=== PATIENT | male | born 1980 | race Caucasian/White ===

== ENCOUNTER 2017-03-02 18:52 | Emergency (ER) | payer OTHER ==
[~2017-03-02] VITALS: Ht 157.5 cm; Wt 74.8 kg
[2017-03-02 19:00] VITALS: BP 146/78
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
[2017-03-02 19:20] VITALS: BP 146/78
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
== END 2017-03-02 19:20 ==
LOC: MED 18:52
DX: S20.452A Superficial foreign body of left back wall of thorax, initial encounter (principal); S00.81XA Abrasion of other part of head, initial encounter; X58.XXXA Exposure to other specified factors, initial encounter; Y93.89 Activity, other specified; Y92.89 Other specified places as the place of occurrence of the external cause; Y99.8 Other external cause status
CPT/HCPCS: 99284

== ENCOUNTER 2017-03-03 10:31 | Emergency (ER) | payer OTHER ==
[~2017-03-03] VITALS: Ht 175.3 cm; Wt 88.5 kg
[2017-03-03 10:39] VITALS: BP 159/99
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
--- NOTE | 2017-03-03 10:53 | NUR ---
PA AT BEDSIDE
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
--- NOTE | 2017-03-03 11:10 | NUR ---
Genevieve vanessa in [facility] - 03/03/17 at 1110 by MED LILIAM student at [facility].
--- NOTE | 2017-03-03 11:10 | NUR ---
Pt escorted to restroom by Tasha GASPAR
--- NOTE | 2017-03-03 11:36 | NUR ---
Patient c/o dizziness. Blood accu-check checked. 93.
--- NOTE | 2017-03-03 12:00 | NUR ---
AMB. TO [place] WITH [facility]. DENIES DIZZINESS/STEADY GAIT
[2017-03-03 12:25] VITALS: BP 167/104
--- NOTE | 2017-03-03 12:25 | NUR ---
Chart checked and completed. The patient's care was reviewed and supervised by Reymundo Morrissey RN.
== END 2017-03-03 12:25 ==
LOC: MED 10:31
DX: Z02.89 Encounter for other administrative examinations (principal); S00.81XA Abrasion of other part of head, initial encounter; S00.01XA Abrasion of scalp, initial encounter; S60.512A Abrasion of left hand, initial encounter; W22.8XXA Striking against or struck by other objects, initial encounter; Y93.89 Activity, other specified; Y92.89 Other specified places as the place of occurrence of the external cause; Y99.8 Other external cause status
CPT/HCPCS: 82948; 90471; 90715; 99283